=== PATIENT | male | born 1990 | race Caucasian/White ===

== ENCOUNTER → 2023-07-28 07:26 | Outpatient (CLI) | payer MEDICAID, SELFPAY ==
--- NOTE | 2023-07-28 07:29 | MR_ITS ---
FINAL REPORT CLINICAL HISTORY: SPRAIN OF THUMB, LEFT THUMB PAIN, PT STATES IT LOCKS UP, SWELLING. NO INJURY COMPARISON: None FINDINGS: Multiplanar MR imaging of the left hand was performed without contrast. The bony structures are intact without evidence of fracture or bone marrow edema. No bony mass is identified. There is tendinosis of the flexor pollicis longus tendon at the level of the first MCP with a possible soft tissue nodule at this level, measuring 6 mm, best seen on series #7 image 10. There is soft tissue edema and/or inflammatory change in this region. The musculature is intact. No soft tissue mass or cyst is identified. No ligamentous abnormality is seen. IMPRESSION: Tendinosis of the flexor pollicis longus tendon at the level of the first MCP with a possible soft tissue nodule at this level as described. There is soft tissue edema and/or inflammation in this region as well. Reviewed, Interpreted and Dictated by Gama Neely III, MD Transcribed by Neelima Abarca Authenticated and [facility]
== END ==
PROVIDERS: PCP Nurse Practitioner Family; Visit Provider Nurse Practitioner Family
DX: S63.642A Sprain of metacarpophalangeal joint of left thumb, initial encounter (principal)
CPT/HCPCS: 73218